=== PATIENT | male | born 1975 | race Two or more races ===

== ENCOUNTER 2020-12-15 20:28 | Emergency (ER) | payer OTHER ==
[~2020-12-15] VITALS: Ht 180.3 cm; Wt 111.1 kg
[2020-12-16] MEDS ORDERED: CIPRO500 MG PO (01:16)
[2020-12-16] MEDS ORDERED: DICLOFENAC SODI75 MG PO (01:16)
== END 2020-12-16 01:22 | disposition home or self-care (01) ==
LOC: ER 20:28
DX: R59.1 Generalized enlarged lymph nodes (principal); L03.811 Cellulitis of head [any part, except face]